=== PATIENT | male | born 1960 | race Caucasian/White ===

== ENCOUNTER 2024-03-20 08:29 | Day surgery (SDC) | payer BC ==
[~2024-03-20] VITALS: Ht 180.3 cm; Wt 75.1 kg
[2024-03-20] VITALS (11 sets, daily range): BP systolic 118–136; BP diastolic 65–82; PULSE 63–82; TEMP 97.2
[~2024-03-20 08:29] MED LIST: 00186-0370-20 IH; REQUIP 0.5MG0.5 MG PO; ROXICODONE 55 MG/TAB PO; SYMBICORT AER 160 INH; TYLENOL 500MG500 MG PO; VENTOLIN0.09 MG IH
[2024-03-20] MEDS ORDERED: PROAIR HFA0.09 MG/AC IH (08:48)
[2024-03-20] MEDS ORDERED: PLAVIX 75MG TAB75 MG PO (08:48)
[2024-03-20] MEDS ORDERED: TOPROL XL 25MG25 MG PO (09:05)
[2024-03-20] MEDS ORDERED: 1/2 NS 1,000 ML IV SCH (09:30)
[2024-03-20 09:39] LABS: MEAN CELL VOLUME 78 fl (80.0-100.0); MEAN CORPUSCULAR HEMOGLOBIN 25 pg (27-31); MEAN CORPUSCULAR HGB CONC 33 g/dl (33.0-37.0); MEAN PLATELET VOLUME 9.2 fl (7.4-10.4); PLATELET COUNT 220 K/mm3 (130-400); RED BLOOD COUNT 3.94 M/mm3 (4.20-5.60)
[2024-03-20 09:42] LABS: HEMATOCRIT 30.6 % (42.0-52.0)
[2024-03-20 09:46] LABS: PROTHROMBIN TIME 10.7 SECONDS (9.7-12.8)
[2024-03-20 09:48] LABS: PARTIAL THROMBOPLASTIN TIME 28.2 SECONDS (26.0-37.0)
[2024-03-20] MEDS ORDERED: ZOFRAN8 MG PO (09:52)
[2024-03-20 10:02] LABS: CALCIUM 9.5 mg/dL (8.4-10.2); CREATININE, serum 1.07 mg/dL (0.72-1.25)
[2024-03-20] MEDS ORDERED: Nitroglycerin 2% Topical Oint 1 GM UD TD SCH (11:35)
--- NOTE | 2024-03-20 11:37 | NUR ---
SEE MERGE FOR PROCEDURE DOCUMENTATION
[2024-03-20] MEDS ORDERED: Heparin 1,000 UNITS/ML 10 ML Multi-Dose VIAL IV SCH (11:52)
[2024-03-20] MEDS ORDERED: fentaNYL 50 MCG/ML 2 ML VIAL IV SCH (11:54)
[2024-03-20] MEDS ORDERED: Midazolam 2 MG/2 ML VIAL IV SCH (11:55)
[2024-03-20] MEDS ORDERED: niCARdipine (Cath Lab) 100 MCG/ML 10 ML VIAL IA SCH (12:00)
[2024-03-20] MEDS ORDERED: Iohexol 350 - 100 ML VIAL INCOR ONE (12:01)
--- NOTE | 2024-03-20 15:38 | NUR ---
Air was removed from TR band in 2 ml increments with no bleeding or complication. Rt radial puncture site covered with folded 2x2 and bandaid. Discharge and home care instructions reviewed with pt, he expresses understanding. He is steady on feet around room. He ate meal tray and has had several drinks during recovery period. IV DC'd, site wrapped with coban. Pt sitting up on edge of bed, awaiting arrival of his , who completed her appts in [place], and will dropped off here by friend and is able to drive pt home.
--- NOTE | 2024-03-20 15:50 | NUR ---
Pt's arrives and pt is assisted down to entrance to her car with his belongings. Pt remains free of complaints at discharge.
== END 2024-03-20 15:50 | disposition home or self-care (01) ==
LOC: COL.CAR 08:29
PROVIDERS: Internal Medicine Cardiovascular Disease
DX: R94.39 Abnormal result of other cardiovascular function study (principal); I34.0 Nonrheumatic mitral (valve) insufficiency; I70.0 Atherosclerosis of aorta; I27.20 Pulmonary hypertension, unspecified; R22.41 Localized swelling, mass and lump, right lower limb; Z85.118 Personal history of other malignant neoplasm of bronchus and lung; Z87.891 Personal history of nicotine dependence
CPT/HCPCS: C1769; J1644; J2250; J2404; J3010; Q9967